=== PATIENT | female | born 2005 | race Caucasian/White ===

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

== ENCOUNTER 2025-10-04 12:15 | Emergency (ER) | payer BC, SELFPAY ==
--- NOTE | ~2025-10-04 | CT_ITS ---
EXAM/PROCEDURE: CT abd pelvis lumbar wo con HISTORY: L flank pain, r/p kidney stone COMPARISON: None available. TECHNIQUE: Noncontrast exam FINDINGS: The bowel gas pattern is nonobstructive with no free air free fluid or pneumatosis. No hydroureteronephrosis or urolithiasis seen. No obstructing ureteral stones. Normal size appendix aorta and gallbladder. No gross CT evidence of acute pancreatitis. Liver spleen and adrenal glands appear normal. Urinary bladder also appears normal. Anteflex uterus and adnexal regions unremarkable. No bulky mesenteric or retroperitoneal lymphadenopathy or masses present, however numerous mesenteric nonpathologic sized lymph nodes are present especially in the central mesentery. Lung bases are clear. Heart size normal. Trace pericardial effusion. The bones appear intact. Extra peritoneal soft tissues appear within normal limits. IMPRESSION: 1. Directed noncontrast exam with no acute surgical abnormality identified. 2. Numerous mesenteric lymph nodes which could be associated with mesenteric adenitis. Reviewed, dictated and finalized at location A. RAM PROJECT ANALYST IMPRESSION: 1. Directed noncontrast exam with no acute surgical abnormality identified. 2. Numerous mesenteric lymph nodes which could be associated with mesenteric ad enitis.
[2025-10-04 12:19] VITALS: BP 151/92; PULSE 109; RESP 20; TEMP 36.3; O2SAT 99
--- NOTE | 2025-10-04 13:58 | ECG_ITS ---
Test Date: 2025-10-04 14:39:51 Measurements Intervals [place] Rate: 109 P: 107 WV: 157 QRS: 51 QRSD: 94 T: 7 QT: 312 QTc: 422 Interpretive Statements SINUS TACHYCARDIA MINIMAL Q WAVES- INF/LAT LEADS BORDERLINE ST-T WAVE ABNORMALITY- INFERIOR LEADS BASELINE ARTIFACT- I, III, AVR, AVL ABNORMAL ECG No previous ECG available for comparison Electronically Signed On 10-04-2025 14:45:18 ELECTRICIAN OUTSIDE by Stevie Sneed D.O.
--- NOTE | 2025-10-04 13:58 | ED.ABDPAIN ---
HPI - Abdominal Pain General Chief Complaint: Abdominal Pain <Bharti Davidson APRN - Last Filed: 10/04/25 14:00> Stated Complaint: L ABD PAIN X1D <Bhartiaaron Davidson APRN - Last Filed: 10/04/25 14:00> Time Seen by Provider: 10/04/25 13:58 <Bharti Davidson APRN - Last Filed: 10/04/25 14:00> Focused HPI: Patient is a 20-year-old female who presents to the ER with left-sided flank pain, and bilateral lower back pain that started approximately 2 days ago. She reports she never had this sensation before. Patient denies any injury to the area. She reports she is unsure whether not she is . Patient denies any urinary symptoms, abdominal pain, or recent fevers. She denies any pertinent medical history. GENERAL: Well-appearing, obese and in no acute distress. HEAD: Normocephalic, atraumatic. CHEST: Clear to auscultation. ?No respiratory distress. HEART: Regular rate and rhythm.? NEURO: ?Alert and oriented x3. Patient screened in triage and initial orders placed.? ?Additional care and disposition to be based upon?diagnostic testing and treatment. <Bharti Davidson APRN - Last Filed: 10/04/25 14:00> History of Present Illness HPI narrative: I agree with the above HPI <Simone Kelley MD - Last Filed: 10/04/25 18:37> Related Data Allergies/Adverse Reactions: Allergies Allergy/AdvReac Type Severity Reaction Status Date / Time No Known Allergies Allergy Verified 10/04/25 12:17 <Bharti Davidson APRN - Last Filed: 10/04/25 14:00> Review of Systems Review of Systems: All systems reviewed & are unremarkable except as noted in HPI and below <Simone Kelley MD - Last Filed: 10/04/25 18:37> PMFSH Past Medical History Medical History: Medical History Anxiety <Bharti Davidson APRN - Last Filed: 10/04/25 14:00> Family History Family History: Family History Other Hodgkins disease Malignant tumor of cervix Squamous cell carcinoma of vulva <Bharti Davidson APRN - Last Filed: 10/04/25 14:00> Social History Social History: Social History (Updated 03/06/22 @ 09:14 by Chaparrita Frances [facility]) Smoking status: Never smoker Alcohol intake: never Substance use: never Substance use type: does not use Living arrangements: with family Occupation/Education: occupation Gender identity (if verbalized by the patient): Female Sexual Orientation (if Verbalized by the Patient): Straight or Heterosexual <Bharti Davidson, HYDRAULIC PLUMBER HELPER - Last Filed: 10/04/25 14:00> Exam Narrative: APPEARANCE: Well appearing, no pain, no distress, well-nourished. HEAD: normocephalic, atraumatic. EYES: PERRLA/EOMI, conjunctivae clear. NOSE: Normal no drainage EARS:TMS clear with good light reflex. THROAT: Pharynx clear, no exudate. NECK: Supple. No adenopathy, no masses. RESPIRATORY: Airway patent, respirations nonlabored. Clear to auscultation bilaterally, no rales, rhonchi, wheezing. CARDIOVASCULAR: Regular rate and rhythm without murmurs rubs or gallops. ABDOMINAL: Soft, nontender, nondistended, normal bowel sounds MUSCULOSKELETAL: Moves all extremities. Strength/ROM intact, No edema, No calf tenderness. NEURO: Alert. Cranial nerves II through XII intact. Grossly intact SKIN: Warm, dry. Normal Color <Simone Kelley MD - Last Filed: 10/04/25 18:37> Course Vital Signs Vital signs: Vital Signs Temperature 97.4 F L 10/04/25 12:19 Pulse Rate 109 H 10/04/25 12:19 Respiratory Rate 20 10/04/25 12:19 Blood Pressure 151/92 H 10/04/25 12:19 Pulse Oximetry 99 10/04/25 12:19 Oxygen Delivery Room Air 10/04/25 12:19 Temperature 97.4 F L 10/04/25 12:19 Pulse Rate 84 10/04/25 16:31 Respiratory Rate 16 10/04/25 16:31 Blood Pressure 136/78 10/04/25 16:31 Pulse Oximetry 99 10/04/25 16:31 Oxygen Delivery Room Air 10/04/25 12:19 <Bharti Davidson APRN - Last Filed: 10/04/25 14:00> Vital Signs Temperature 97.4 F L 10/04/25 12:19 Pulse Rate 109 H 10/04/25 12:19 Respiratory Rate 20 10/04/25 12:19 Blood Pressure 151/92 H 10/04/25 12:19 Pulse Oximetry 99 10/04/25 12:19 Oxygen Delivery Room Air 10/04/25 12:19 Temperature 97.4 F L 10/04/25 12:19 Pulse Rate 84 10/04/25 16:31 Respiratory Rate 16 10/04/25 16:31 Blood Pressure 136/78 10/04/25 16:31 Pulse Oximetry 99 10/04/25 16:31 Oxygen Delivery Room Air 10/04/25 12:19 <Simone Kelley MD - Last Filed: 10/04/25 18:37> [facility] Narrative Medical decision making narrative: 20-year-old female presented emergency department for evaluation for left flank pain. Patient is currently afebrile with no leukocytosis with a normal hemoglobin. No acute abnormalities on her CMP UA was negative for infection to proceed test was negative. CT scan did show evidence of mesenteric adenitis. Patient's abdomen is soft and nontender. Patient was advised to take anti-inflammatories and have close follow-up with her primary care physician. All questions concerns were addressed. <Simone Kelley MD - Last Filed: 10/04/25 18:37> Differential Diagnosis Differential Diagnosis: Appendicitis, colitis, diverticulitis, mesenteric adenitis, UTI <Smione Kelley MD - Last Filed: 10/04/25 18:37> Lab Data [facility] Lab Attestation statement: I personally reviewed the patient's lab results. <Simone Kelley MD - Last Filed: 10/04/25 18:37> Result diagrams: 10/04/25 14:03 10/04/25 14:03 <Bharti Davidson APRN - Last Filed: 10/04/25 14:00> Labs: Lab Results 10/04/25 10/04/25 Range/Units 14:03 14:08 WBC 10.0 (4.5-10.0) K/mm3 RBC 4.78 (4.2-5.4) M/mm3 Hgb 13.4 (12.0-15.0) g/dL Hct 41.7 (37.0-47.0) % MCV 87.2 (80-100) fl MCH 28.0 (26-34) pg MCHC 32.1 (32-36) g/dl RDW 13.8 (11.5-14.5) % Plt Count 285 (150-375) k/mm3 MPV 10.2 (7.4-10.4) fl Immature Gran % (Auto) 0.2 (0-0.5) % Neut % (Auto) 61.3 (45.5-73.1) % Lymph % (Auto) 30.4 (18.3-44.2) % [place] % (Auto) 6.5 (2.6-8.5) % Eos % (Auto) 1.3 (0-4.4) % Baso % (Auto) 0.3 (0.2-1.2) % Lymph # (Auto) 3.02 (0.9-3.2) K/mm3 [place] # (Auto) 0.7 H (0.1-0.6) K/mm3 Eos # (Auto) 0.1 (0-0.3) K/mm3 Baso # (Auto) 0.0 (0.0-0.1) K/mm3 Abs Immat Gran (auto) 0.02 (0.00-0.031) K/mm3 Absolute Neuts (auto) 6.1 (1.3-6.7) K/mm3 Absolute Nucleated RBC 0.000 (0.0-0.012) K/mm3 Nucleated RBC % 0.0 (0.0-0.2) % Sodium 139 (137-145) mmol/L Potassium 4.0 (3.4-5.0) mmol/L Chloride 107 (98-107) mmol/L Carbon Dioxide 24 (22-30) mmol/L Anion Gap 8 (4-12) mmol/L BUN 7 (7-17) mg/dL Creatinine 0.65 L (0.7-1.0) mg/dL Estim Creat Clear Calc 155 ml/min Estimated GFR > 60 (59 - ) Glucose 88 (65-110) mg/dL Calcium 9.3 (8.4-10.2) mg/dL Total Bilirubin 0.5 (0.2-1.3) mg/dL AST 21 (14-36) U/L ALT 21 (6-35) U/L Alkaline Phosphatase 66 (38-126) U/L Total Protein 8.4 H (6.3-8.2) g/dL Albumin 4.5 (3.5-5.1) g/dL Lipase 48 (23-300) U/L Urine Color Yellow (Yellow) Urine Appearance Clear (Clear) Urine pH 7.0 (5.0-9.0) Ur Specific [place] 1.008 (1.001-1.035) Urine Protein Negative (Negative) mg/dL Urine Glucose (UA) Negative (Negative) mg/dL Urine Ketones Negative (Negative) mg/dL Ur Blood (Man) Negative (Negative) Urine Nitrate Negative (Negative) Urine Bilirubin Negative (Negative) Urine Urobilinogen 0.2 (<2.0) mg/dL Leukocyte Esterase Rfl Trace H (Negative) EDGAR/UL Urine RBC 0-2 (0-2) /hpf Urine WBC 0-5 (0-3) /hpf Ur Squamous Epith Cells Few (Few) /hpf Urine Bacteria Rare /hpf Urine Casts 0-2 POC Urine HCG, Qual Negative (Negative) <Bharti Davidson, HYDRAULIC PLUMBER HELPER - Last Filed: 10/04/25 14:00> Lab Results 10/04/25 10/04/25 Range/Units 14:03 14:08 WBC 10.0 (4.5-10.0) K/mm3 RBC 4.78 (4.2-5.4) M/mm3 Hgb 13.4 (12.0-15.0) g/dL Hct 41.7 (37.0-47.0) % MCV 87.2 (80-100) fl MCH 28.0 (26-34) pg MCHC 32.1 (32-36) g/dl RDW 13.8 (11.5-14.5) % Plt Count 285 (150-375) k/mm3 MPV 10.2 (7.4-10.4) fl Immature Gran % (Auto) 0.2 (0-0.5) % Neut % (Auto) 61.3 (45.5-73.1) % Lymph % (Auto) 30.4 (18.3-44.2) % [place] % (Auto) 6.5 (2.6-8.5) % Eos % (Auto) 1.3 (0-4.4) % Baso % (Auto) 0.3 (0.2-1.2) % Lymph # (Auto) 3.02 (0.9-3.2) K/mm3 [place] # (Auto) 0.7 H (0.1-0.6) K/mm3 Eos # (Auto) 0.1 (0-0.3) K/mm3 Baso # (Auto) 0.0 (0.0-0.1) K/mm3 Abs Immat Gran (auto) 0.02 (0.00-0.031) K/mm3 Absolute Neuts (auto) 6.1 (1.3-6.7) K/mm3 Absolute Nucleated RBC 0.000 (0.0-0.012) K/mm3 Nucleated RBC % 0.0 (0.0-0.2) % Sodium 139 (137-145) mmol/L Potassium 4.0 (3.4-5.0) mmol/L Chloride 107 (98-107) mmol/L Carbon Dioxide 24 (22-30) mmol/L Anion Gap 8 (4-12) mmol/L BUN 7 (7-17) mg/dL Creatinine 0.65 L (0.7-1.0) mg/dL Estim Creat Clear Calc 155 ml/min Estimated GFR > 60 (59 - ) Glucose 88 (65-110) mg/dL Calcium 9.3 (8.4-10.2) mg/dL Total Bilirubin 0.5 (0.2-1.3) mg/dL AST 21 (14-36) U/L ALT 21 (6-35) U/L Alkaline Phosphatase 66 (38-126) U/L Total Protein 8.4 H (6.3-8.2) g/dL Albumin 4.5 (3.5-5.1) g/dL Lipase 48 (23-300) U/L Urine Color Yellow (Yellow) Urine Appearance Clear (Clear) Urine pH 7.0 (5.0-9.0) Ur Specific [place] 1.008 (1.001-1.035) Urine Protein Negative (Negative) mg/dL Urine Glucose (UA) Negative (Negative) mg/dL Urine Ketones Negative (Negative) mg/dL Ur Blood (Man) Negative (Negative) Urine Nitrate Negative (Negative) Urine Bilirubin Negative (Negative) Urine Urobilinogen 0.2 (<2.0) mg/dL Leukocyte Esterase Rfl Trace H (Negative) EDGAR/UL Urine RBC 0-2 (0-2) /hpf Urine WBC 0-5 (0-3) /hpf Ur Squamous Epith Cells Few (Few) /hpf Urine Bacteria Rare /hpf Urine Casts 0-2 POC Urine HCG, Qual Negative (Negative) <Simone Kelley MD - Last Filed: 10/04/25 18:37> Imaging Data Radiologist's impression: ITS Impressions Miscellaneous CT Procedure 10/04/25 14:53 IMPRESSION: 1. Directed noncontrast exam with no acute surgical abnormality identified. 2. Numerous mesenteric lymph nodes which could be associated with mesenteric adenitis. <Bhrati Davidson APRN - Last Filed: 10/04/25 14:00> ITS Impressions Miscellaneous CT Procedure 10/04/25 14:53 IMPRESSION: 1. Directed noncontrast exam with no acute surgical abnormality identified. 2. Numerous mesenteric lymph nodes which could be associated with mesenteric adenitis. <Simone Kelley MD - Last Filed: 10/04/25 18:37> Discharge Plan Discharge Clinical Impression: Mesenteric adenitis <Bharti Davidson APRN - Last Filed: 10/04/25 14:00> Patient Disposition: Home <Bharti Davidson APRN - Last Filed: 10/04/25 14:00> Condition: Stable <Bharti Davidson APRN - Last Filed: 10/04/25 14:00> Instructions: Antibiotic Form, Abdominal Pain (ED), Mesenteric Adenitis (ED) <Bharti Davidson APRN - Last Filed: 10/04/25 14:00> Additional Instructions: Naproxen as directed for the next few days. Tylenol as needed for additional pain control. Have close follow-up with your primary care physician. <Bharti Davidson APRN - Last Filed: 10/04/25 14:00> Patient Language: Tajik <Bharti Davidson APRN - Last Filed: 10/04/25 14:00> Prescriptions: New naproxen [Naprosyn] 500 mg tablet 500 mg PO BID 7 Days Qty: 14 0RF No Action drospirenone-ethinyl estradiol 3-0.03 mg tablet 1 tablet PO DAILY Qty: 84 4RF <Bharti Davidson, GIANA - Last Filed: 10/04/25 14:00> Follow-up/Referrals: PHYSICIAN NOT ON STAFF,NONSTAFF [Primary Care Provider] <Bharti Davidson, GIANA - Last Filed: 10/04/25 14:00>
--- OUTSIDE RECORDS SUMMARY | 2025-10-04 14:10 | XMS_ITS | Clinical Summary ---
Author Organization [facility] [facility] Address [address] [place] [address] Care Team Providers Care Molding Associate Name Role Phone Unavailable Primary Care Provider Unavailabl e Source Comments [facility],non-owned Affiliates and Associated Physician Practices is amultiple site organization consisting of ambulatory clinics and hospital sitesin [place], [place], [place] and [place]. This disclosure is being madepursuant to the Care Everywhere program and may not contain all information available regarding this patient. Last updated 18.[place] Allergies No known active allergies Medications * Be aware that medications may not be up to date on this document. Alwaysverify current medications with the patient. ibuprofen (MOTRIN) 800 MG tablet Take 1 tablet by mouth every 8 hours as needed for Pain 30 tablet 8 Active HYDROcodone-gabe taminophen (LORTAB) 5-325 MG tablet Take 1 tablet by mouth every 4 hours as needed for Pain (For breakthrough pain) 20 tablet 8 Active Active Problems Problem Noted Date Diagnosed Date BMI (body mass index), pediatric, 95-99% for age 0402/15/2013 Immunizations Immunization Administration Dates Next Due DTaP VACCINE IM (6wk-6yrs) 02/16/2008,,2003,2003,06/02 HEP B VACCINE, PED/ADOL 2003,2003,,2003 HIB BOOSTER 07/08/2005,2003,2003 ,2003 MMR 02/16/2008,08/08/2005 PNEUMOCOCCAL CONJ, PEDS 07/08/2005,2003,,2003 POLIO IPV 02/16/2008,2003,2003 ,2003 PPD 08/08/2005 VARICELLA 02/16/2008,08/08/2005 Social History Tobacco Use Types Packs/Day Years Used Date Smoking Tobacco: Passive Smo ke Exposure - Never Smoker Smokeless Tobacco: Never Alcohol Use Standard Drinks/Week Comments Yes 0 (1 standard drink = 0.6 oz pur e alcohol) 1 Comments No Sex and Gender Information Value Date Recorded Sex Assigned at Not on file Legal 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 Gender Identity Not on file Sexual Orientation Not on file Last Filed Vital Signs Vital Sign Reading Time Taken Comments Blood Pressure 95/59 11/03/2017 12:18 AM BEER MERCHANT Pulse 115 11/03/2017 12:18 AM BEER MERCHANT Temperature 36.4 C (97.5 F) 11/02/2017 7:57 PM BEER MERCHANT Respiratory Rate 19 11/03/2017 12:18 AM BEER MERCHANT Oxygen Saturation 99% 11/03/2017 12:18 AM BEER MERCHANT Inhaled Oxygen Concentration - - Weight 83.9 kg (185 lb) 11/02/2017 8:11 PM BEER MERCHANT Height 160 cm (5' 3) 11/02/2017 8:11 PM BEER MERCHANT Body Mass Index 32.77 11/02/2017 8:11 PM BEER MERCHANT Plan of Treatment Health Maintenance Due Date Last Done Comments DTAP/TDAP/TD VACCINES (6 - Tdap) 2014 02/16/2008, 07/08/2005, 2003, Additional history exists HIV SCREENING 2018 HPV VACCINE (1 - 3-dose series) 2018 CHLAMYDIA/GONORRHEA SCREENING 2019 MENINGOCOCCAL (Group B) VACCINE SHARED DECISION-MAKING (1 of 2 - Standard) 2019 HEPATITIS C SCREENING 03/26/2021 DEPRESSION SCREENING 10/19/2024 COVID-19 VACCINE (2024-26 season) 2025 INFLUENZA VACCINE (#1) 2025 ZOSTER VACCINE (1 of 2) 2053 HEPATITIS B VACCINE Completed 2003, 2003, 2003, Additional history exists HIB VACCINE Completed 07/08/2005, 06/2004, 2003, Additional history exists PNEUMOCOCCAL VACCINE Completed 07/08/2005, 2003, 2003, Additional history exists MENINGOCOCCAL GROUPS A/C/Y/W VACCINE Aged Out No longer eligible based on patient's age to complete this topic
--- OUTSIDE RECORDS SUMMARY | 2025-10-04 14:10 | XMS_ITS | Clinical Summary ---
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 Gender Identity Not on file Sexual Orientation Not on file Plan of Treatment Health Maintenance Due Date Last Done Comments Hepatitis C Virus (HCV) Screening 2003 Meningococcal B Immunization (1 of 2 - Standard) 2019 Influenza Immunization (#1) 2025 07/27/2014 SARS-COV-2 Immunization (2 - season) 2025 07/19/2021 Respiratory Syncytial Virus (RSV) Immunization (Adult) (1 - 1-dose 75+ series) 2078 Hepatitis B Immunization Completed 004, 2003, 2003, Additional history exists Pneumococcal Immunization Combined Aged Out 07/08/2005, 2003, 2003, Additional history exists No longer eligible based on patient's age to complete this topic Measles Mumps Rubella (MMR) Immunization Discontinued 02/16/2008, 08/08/2005 Polio (IPV) Immunization Discontinued 008, 2003, 2003, Additional history exists Varicella Immunization Completed 02/16/2008, 2004 DTaP/Tdap/Td Immunization Discontinued 2013, 02/16/2008, 07/08/2005, Additional history exists TdaP Immunization Completed 07/27/2014 Hepatitis A Immunization Discontinued 05/27/2016, 100 06/2014 Human Papillomavirus (HPV) Immunization Completed 01/14/2018, 06/02/2017 Meningococcal Immunization (ACWY) Completed 08/06/2020, 07/27/2014 Rotavirus Immunization Aged Out No lo nger eligible based on patient's age to complete this topic
--- OUTSIDE RECORDS SUMMARY | 2025-10-04 14:10 | XMS_ITS | Clinical Summary ---
Author Organization [facility] Address [address] [place] [address] Care Team Providers Care Metal Roaster Name Role Phone Tyrone Castellanos MD Primary Care Provider Allergies No known active allergies Medications acetaminophen (TYLENOL) 500 mg tablet Take 1 tablet (500 mg total) by mouth TAKE 1 TABLET BY MOUTH EVERY 6 HOURS FOR PAIN 02/21/2025 Active Active Problems Problem Noted Date Diagnosed Date Class 3 severe obesity due t o excess calories without serious comorbidity with body mass index (BMI) of 45.0 to 49.9 in adult 06/04/2024 Assessment & Plan (06/04/2024 11:58 PM CDT): We reviewed diet and exercise. We discussed weight loss strategies. We reviewed medication that may help with weight loss. BMI Follow-up includes: nutrition counseling and exercise counseling. She is working on decreased meal portions, increased food quality, and avoiding snacking. Encounter for wellness examination in adult 03/2024 Assessment & Plan (06/04/2024 11:57 PM CDT): We discussed diet and exercise and the benefits of healthy lifestyle choices. We discussed the benefit of losing a few pounds. We discussed the increased morbidity and mortality associated with morbid obesity. We reviewed accident prevention, including seat belt use and smoke detectors. We discussed stress management and relaxation. We reviewed immunization and cancer screening recommendations. She will be due for Tdap booster 07/2024. She will check insurance for coverage. We discussed tobacco and drug avoidance and safe sex practices. We discussed condom use to reduce risk of STDs including HIV. She declines STD screening. Encounter for lipid screening for cardiovascular disease 05/24/2024 Assessment & Plan (06/04/2024 11:56 PM CDT): Check fasting lipid panel. We reviewed her cardiovascular risk factors. Encounter for hepatitis C sc reening test for low risk patient 05/24/2024 Assessment & Plan (06/04/2024 11:55 PM CDT): Check hepatitis-C antibody. We discussed rationale for screening. Constipation 05/24/2024 Assessment & Plan (06/04/2024 11:55 PM CDT): Recommend high-fiber diet. Push fluids. Add stool softener if persists. We will check TSH and calcium level on CMP. Resolved Problems Problem Noted Date Diagnosed Date Resolved Date Mass of left knee 07/27/2024 03/14/2025 Lipoma of left lower extremity 05/24/2024 09/19/2024 Assessment & Plan (06/04/2024 11:58 PM CDT): This overlies the knee. She wishes this to be removed. It does cause some discomfort when kneeling. Refer to general surgery. Expect they may want to check CT scan of the soft tissues. Immunizations Immunization Administration Dates Next Due DTaP 02/16/2008, 5,2003,08/03,2003 DTaP / Hep B / IPV 2003,2003 HPV9 01/14/2018,06/02/2017 Hep A, Pediatric 05/27/2016,07/27/2014 Hep B, Adolescent or Pediatric 4,2003,2003,03/31 HiB 2003,2003,2003 Hib (PRP-T) 07/08/2005 IPV 02/16/2008, 4,2003,06/02 Influenza, Quadrivalent, Luiza l Culture-based MDCK, Preservative Free, Antibiotic Free, Intramuscular 09/07/2021 Influenza, Quadrivalent, Spl it, Preservative Free, Intramuscular 08/12/2023,09/14/2022,07/27/2014 MMR 02/16/2008,08/08/2005 Meningococcal Conjugate (Menveo) 08/06/2020 Meningococcal MCV4P (Menactra) 07/27/2014 PPD TEST 08/08/2005 Pneumococcal Conjugate 7-Valent 07/08/20 05,2003,2003,06/02 Pneumococcal Conjugate, Unspecified 06/20,2003,2003,06/02 Tdap 05/24/2025,07/27/2014 Varicella 02/16/2008,08/08/2005 Surgical History Surgery Date Site/Laterality Comments LIPOMA RESECTION 07/19/2024 - 08/18/2024 knee area Medical History Medical History Date Comments Obese Ankle fracture 2018 Fracture boot Mass of left knee 07/27/2024 Family History Medical History Relation Name Comments Obesity Father Pelvic cancer Maternal Grandmother Alcohol abuse Mother Cancer Mother 3 cancers, pelv ic, squamous cell vaginal cancer, other Dental problems Mother Depression Mother Smoker Mother Alzheimer's disease Paternal Grandmother No Known Problems Sister 1 No Known Problems Sister 2 Relation Name Status Comments Father Alive Maternal Grandmother Mother Alive Paternal Grandmother Alive Sister 1 Alive Sister 2 Alive Social History Tobacco Use Types Packs/Day Years Used Date Smoking Tobacco: Never Smokeless Tobacco: Never Tobacco Cessation:Counseling Given: Not Answered AUDIT-C Answer Date Recorded Q1: How often do you have a drink containing alc ohol? 2-4 times a month 08/02/2024 Q2: How many drinks containi ng alcohol do you have on a typical day when you are drinking? 1 or 2 08/02/2024 Frequency of Binge Drinking Not on file 07/19 PHQ-2 Answer Date Recorded PHQ-2 Total Score 0 05/24/2025 Personal Safety Answer Date Recorded Have you ever been in or are you currently in a harmful physical or emotional relationship or is someone making you feel afraid or unsafe? Denies 08/08/2024 Comments No Sex and Gender Information Value Date Recorded Sex Assigned at Not on file Legal Sex Female 11:21 AM MOONER Gender Identity Not on file Sexual Orientation Not on file Last Filed Vital Signs Vital Sign Reading Time Taken Comments Blood Pressure 100/74 05/24/2025 8:25 AM CDT Pulse 103 05/24/2025 8:25 AM CDT Temperature 36.2 C (97.1 F) 08/23/2024 2:45 PM MOONER Respiratory Rate 16 08/08/2024 9:26 AM CDT Oxygen Saturation 98% 05/24/2025 8:25 AM CDT Inhaled Oxygen Concentration - - Weight 123.8 kg (273 lb) 05/24/2025 8:25 AM CDT Height 165.1 cm (5' 5) 05/24/2025 8:25 AM CDT Body Mass Index 45.43 05/24/2025 8:25 AM CDT Plan of Treatment Health Maintenance Due Date Last Done Comments Cervical Cancer Screening 2003 Meningococcal B Vaccine (1 o f 2 - Standard) 2019 Covid-19 Vaccine (2 - 2024-2 6 season) 2025 07/19/2021 Influenza Vaccine (#1) 2025 , 09/14/2022, 09/07/2021, Additional history exists Chlamydia and Gonorrhea (GC/ CT) Screening 05/24/2026 05/24/2025 Depression Screening 05/24/2026 05/24/2025, 03/02/2025, 05/24/2024 Regular Well Visit/Exam 18-64 05/24/2026 05/24/2025, 05/24/2024 DTaP/Tdap/Td Vaccine (8 - Td or Tdap) 05/24/2035 05/24/2025, 07/27/2014, 02/16/2008, Additional history exists Hepatitis B Screening Completed 2003 , 2003, 2003, Additional history exists Pneumococcal vaccine <65 Completed 005, 07/08/2005, 2003, Additional history exists Varicella Vaccines Completed 02/16/2008, 08/08/2005 HPV Vaccines Completed 01/14/2018, 06/02/2017 Hepatitis C Screening Completed 05/24/2024 Procedures Procedure Name Priority Date/Time Associated Diagnosis Comments N. GONORRHOEAE/C. TRACHOMATIS AMPLIFICATION Routine 05/24/2025 9:47 AM CDT Screen for STD (sexually transmitted disease) Well adult exam HEPATITIS C ANTIBODY Routine 05/24/2024 10:30 AM CDT Encounter for hepatitis C screening test for low risk patient Encounter for wellness examination in adult from Last 3 Months or Most Recently Relevant to Health Maintenance Results * N. gonorrhoeae/C. trachomatis Amplification Urine (05/24/2025 9:47 AM CDT) C. trachomatis Not Detected Not Detected N. gonorrhoeae Not Detected Not Detected [facility] Comment: Interpretive Data This assay detects Chlamydia trachomatis and Neisseria gonorrhoeae by nucleic acid amplification testing (NAAT). This assay has been cleared by the [place] Food and Drug administration. The performance characteristics of this test have been verified by the [facility]. The performance characteristics of this test have not been evaluated in individuals less than 14 years of age. Current Interpretive Data last revised 2023. Urine (None) 05/24/2025 9:47 AM CDT 05/24/2025 1:43 PM CDT us Tyrone Castellanos MD LAB MICROBIOLOGY - GENERAL ORD ERABLES Final Result [facility] [address] Department [place] [address] * Hepatitis C antibody Blood (05/24/2024 10:30 AM CDT) Hep C Ab Nonreactive Nonreactive Comment: Interpretive Data Nonreactive: Antibodies to HCV not detected. Does NOT exclude the possibility of recent exposure to HCV. Equivocal: Equivocal for HCV antibodies. Supplemental molecular testing will be automatically performed to determine infection status in accordance with current CDC screening recommendations. Reactive: Positive for HCV antibodies. This may represent current or past HCV infection. Supplemental molecular testing will be automatically performed to determine current infection status in accordance with current CDC screening recommendations. Interpretive data was last revised on 2020. Blood 05/24/2024 10:3 0 AM CDT 05/24/2024 4:33 PM CDT Tyrone Castellanos MD LAB MICROBIOLOGY - GENERAL ORD ERABLES Edited Result - Final [facility] [address] Department [place] [address] from Last 3 Months or Most Recently Relevant to [place] [address] [place] [address] [place] [address] Care Teams Metal Roaster Relationship Specialty Start Date End Date Tyrone Castellanos MD PCP - General Family Medicine 05/24/24
[2025-10-04 14:14] LABS: Hematocrit 41.7 % (37.0-47.0); Hemoglobin 13.4 g/dL (12.0-15.0); Immature Granulocyte Percent A 0.2 % (0-0.5); Lymphocytes Absolute Auto 3.02 K/mm3 (0.9-3.2); Mean Corpuscular HGB Conc 32.1 g/dl (32-36); Mean Corpuscular Hemoglobin 28.0 pg (26-34); Mean Corpuscular Volume 87.2 fl (80-100); Nucleated Red Blood Cells Absolute Auto 0.000 K/mm3 (0.0-0.012); Nucleated Red Blood Cells Perc 0.0 % (0.0-0.2); Platelet Count Result 285 k/mm3 (150-375); Red Blood Count 4.78 M/mm3 (4.2-5.4); White Blood Count 10.0 K/mm3 (4.5-10.0)
[2025-10-04 14:18] LABS: Add Urine Microscopic? YES; Appearance Urine Clear (Clear); Glucose Urine UA Negative (Negative); Leukocyte Esterase Ur Trace LEU/UL (Negative); Nitrate Urine Negative (Negative); Non Pathogenic Casts 0-2; Specific Grav Ur 1.008 (1.001-1.035)
[2025-10-04 14:23] LABS: Alanine Aminotransferase 21 U/L (6-35); Albumin Level 4.5 g/dL (3.5-5.1); Alkaline Phosphatase 66 U/L (38-126); Anion Gap 8 mmol/L (4-12); Aspartate Amino Transferase 21 U/L (14-36); Bilirubin,Total 0.5 mg/dL (0.2-1.3); Blood Urea Nitrogen 7 mg/dL (7-17); Calcium 9.3 mg/dL (8.4-10.2); Carbon Dioxide 24 mmol/L (22-30); Chloride 107 mmol/L (98-107); Estimated CRCL calculation 155 ml/min; Estimated Glomerular Filt Rate > 60; Glucose 88 mg/dL (65-110); Lipase 48 U/L (23-300); Potassium 4.0 mmol/L (3.4-5.0); Sodium 139 mmol/L (137-145); Total Protein 8.4 g/dL (6.3-8.2)
[2025-10-04 15:01] LABS: BEDSIDEPREGUCG Negative (Negative)
[2025-10-04] MEDS: KETOROLAC 30 MG/ML VIAL (*BKC) IM (16:25)
[2025-10-04 16:31] VITALS: BP 136/78; PULSE 84; RESP 16; O2SAT 99
--- OUTSIDE RECORDS SUMMARY | 2025-10-04 18:11 | XMS_ITS | Clinical Summary ---
Author Organization [facility] Address [address] [place] [id number] Care Team Providers Care Java Web User Interface Developer Name Role Phone Unavailable Primary Care Provider Unavailabl e Immunizations Immunization Administration Dates Next Due Covid-19, Mrna, Lnp-s, Pf, 30 Mcg/0.3 Ml Dose (P mananzer) 07/19/2021 Social History Tobacco Use Types Packs/Day Years Used Date Smoking Tobacco: Never Assessed Comments Unknown Sex and Gender Information Value Date Recorded Sex Assigned at Not on file Legal Sex Female 8:48 AM GASKET FORMER Gender Identity Not on file Sexual Orientation [...]
--- OUTSIDE RECORDS SUMMARY | 2025-10-04 18:11 | XMS_ITS | Clinical Summary ---
Author Organization [facility] Address [address] [place] [address] Care Team Providers Care Interlocking Tower Operator Name Role Phone Tyrone Castellanos MD Primary Care Provider [phone] Allergies No known active allergies Medications acetaminophen [...] on file Legal Sex Female 11:21 AM LUBRICATION SUPERVISOR Gender Identity Not on file Sexual Orientation Not on file Last Filed Vital Signs Vital Sign Reading Time Taken Comments Blood Pressure 100/74 05/24/2025 8:25 AM CDT Pulse 103 05/24/2025 8:25 AM CDT Temperature 36.2 C (97.1 F) 08/23/2024 2:45 PM LUBRICATION SUPERVISOR Respiratory Rate 16 08/08/2024 9:26 AM CDT [...] N. gonorrhoeae Not Detected Not Detected [facility] Comment: Interpretive Data This assay detects Chlamydia trachomatis and Neisseria gonorrhoeae by nucleic acid amplification testing (NAAT). This assay has been cleared by the [place] Food and Drug administration. The performance characteristics of this test have been verified by the [facility]. The performance characteristics of this test have not been evaluated in individuals less than 14 years of age. Current Interpretive Data last revised 2023. Urine (None) 05/24/2025 9:47 AM CDT 05/24/2025 1:43 PM CDT us Tyrone Castellanos MD LAB MICROBIOLOGY - GENERAL ORD ERABLES Final Result [facility] [address] Department [place] [address] * Hepatitis C antibody Blood [...] ORD ERABLES Edited Result - Final [facility] [address] Department [place] [address] from Last 3 Months or Most Recently Relevant to [place] [address] [place] [address] [place] [address] Care Teams Interlocking Tower Operator Relationship Specialty Start Date End Date Tyrone Castellanos MD PCP - General Family Medicine 05/24/24
--- OUTSIDE RECORDS SUMMARY | 2025-10-04 18:11 | XMS_ITS | Clinical Summary ---
Author Organization [facility] Address [address] [place] [address] Care Team Providers Care Marketing Finance Manager Name Role Phone Unavailable Primary Care Provider Unavailabl e Source Comments [facility],non-owned Affiliates and Associated Physician Practices is amultiple site organization consisting of ambulatory clinics and hospital sitesin [place], [place], [place] and [place]. This disclosure is being madepursuant to the Care Everywhere program and may not contain all information available regarding this patient. Last updated [email or web address] Allergies No known active allergies Medications * [...] on file Legal Sex Female 6:45 AM DIRECTOR OF FOOD AND BEVERAGE SERVICES Gender Identity Not on file Sexual Orientation Not on file Last Filed Vital Signs Vital Sign Reading Time Taken Comments Blood Pressure 95/59 11/03/2017 12:18 AM DIRECTOR OF FOOD AND BEVERAGE SERVICES Pulse 115 11/03/2017 12:18 AM DIRECTOR OF FOOD AND BEVERAGE SERVICES Temperature 36.4 C (97.5 F) 11/02/2017 7:57 PM DIRECTOR OF FOOD AND BEVERAGE SERVICES Respiratory Rate 19 11/03/2017 12:18 AM DIRECTOR OF FOOD AND BEVERAGE SERVICES Oxygen Saturation 99% 11/03/2017 12:18 AM DIRECTOR OF FOOD AND BEVERAGE SERVICES Inhaled Oxygen Concentration - - Weight 83.9 kg (185 lb) 11/02/2017 8:11 PM DIRECTOR OF FOOD AND BEVERAGE SERVICES Height 160 cm (5' 3) 11/02/2017 8:11 PM DIRECTOR OF FOOD AND BEVERAGE SERVICES Body Mass Index 32.77 11/02/2017 8:11 PM DIRECTOR OF FOOD AND BEVERAGE SERVICES Plan of Treatment Health Maintenance Due Date [...]
== END 2025-10-04 16:33 | disposition home or self-care (01) ==
PROVIDERS: Registered Nurse; Emergency Provider Emergency Medicine
DX: I88.0 Nonspecific mesenteric lymphadenitis (principal); R94.31 Abnormal electrocardiogram [ECG] [EKG]; R00.0 Tachycardia, unspecified
CPT/HCPCS: 36415; 72131; 74176; 80053; 81001; 81025; 83690; 85025; 93005; 96372; 99284; J1885